=== PATIENT | male | born 1980 | race Caucasian/White ===

== ENCOUNTER 2016-08-30 08:56 | Emergency (ER) | payer MEDICAID ==
[~2016-08-30] VITALS: Wt 136.0 kg
[~2016-08-30 08:56] MED LIST: ALBU8.5H3 INH; BEN50 PO; EPIN0.3P4 INJ; PRED50TA PO
[2016-08-30 11:23] LABS: ADD SCAN DIFF NO
[2016-08-30 11:28] LABS: BASOPHIL # 0.1 10^3/ul (0.0-0.1); BASOPHILS % 0.5 % (0.0-2.0); EOSINOPHILS # 0.3 10^3/ul (0.0-0.5); EOSINOPHILS % 2.6 % (0.0-7.0); HEMATOCRIT 54.1 % (42.0-52.0); HEMOGLOBIN 18.1 g/dl (14.0-18.0); LYMPHOCYTES # 2.7 10^3/ul (0.8-2.9); LYMPHOCYTES % 26.5 % (15.0-51.0); MEAN CORPUSCULAR HGB CONC 33.5 g/dl (32.0-37.0); MEAN CORPUSCULAR VOLUME 92.8 fl (82.0-101.0); MEAN PLATELET VOLUME 10.4 fl (7.4-10.4); MONOCYTE # 0.7 10^3/ul (0.3-0.9); MONOCYTES % 7.1 % (0.0-11.0); NEUTROPHIL # 6.3 10^3/ul (1.6-7.5); NEUTROPHILS % 62.5 % (39.0-77.0); PLATELET COUNT 259 10^3/UL (140-415); RED BLOOD COUNT 5.83 10^6/ul (4.70-6.10); RED CELL DISTRIBUTION WIDTH 12.8 % (11.5-14.5); WHITE BLOOD COUNT 10.1 10^3/ul (4.8-10.8)
[2016-08-30 11:42] LABS: ALBUMIN 4.6 g/dl (3.3-4.9); ALBUMIN/GLOBULIN RATIO 1.31; BILIRUBIN,INDIRECT 0.4 mg/dl (0-1.1); BILIRUBIN,TOTAL 0.4 mg/dl (0.2-1.3); CALCIUM 9.9 mg/dl (8.4-10.2); CREATININE 0.8 mg/dl (0.61-1.24); POTASSIUM 4.4 mmol/L (3.5-5.1); TOTAL PROTEIN 8.1 g/dl (6.1-8.1)
[2016-08-30 12:11] LABS: PT RATIO 1.1
[2016-08-30] MEDS ORDERED: PHEN1SUP80 PR (12:17)
--- NOTE | 2016-08-30 12:24 | ERD ---
ER Documentation Chief Complaint Date/Time DATE: 08/30/16 TIME: 12:20 Chief Complaint INTERMITTENT BLOOD IN STOOLS. ONSET YSETERDAY, NO ACTIVE BLEEDING NOW HPI 36-year-old male complaining of blood in the stool upon bowel movement yesterday and today. He reports seeing large piece of clot when wiping. Patient stated that he had a similar episode about 1 month ago. He was seen at all of you at that time. Denies any hemorrhoids. Denies rectal pain or abdominal pain. Patient states that he is "alcoholic", drinking 12-24 beers per day, and expressed desire to quit. ROS All systems reviewed and are negative except as per history of present illness. Medications Home Meds Active Scripts Phenylephrine HCl/[place] Butter* (Preparation H* Suppository) 1 Each Supp.rect, 1 EACH IA BID Y for HEMORRHOID/EPISIOTMY PAIN, #10 SUPP.RECT Prov:HATTIE BURNETTE NP 08/30/16 Albuterol Sulfate* (Proair HFA*) 8.5 Gm Hfa.aer.ad, 2 PUFF INH Q4H Y for WHEEZING AND SOB, #1 INHALER Prov:DANTE GOODMAN NP 09/28/15 Prednisone* (Prednisone*) 50 Mg Tablet, 50 MG PO DAILY, #5 TAB Prov:DANTE GOODMAN NP 09/28/15 Diphenhydramine Hcl* (Benadryl*) 50 Mg Cap, 50 MG PO Q6H Y for ITCHING/RASH, # 30 CAP Prov:DANTE GOODMAN NP 09/28/15 Epinephrine (Epipen 2-Sarabjit) 0.3 Mg/0.3 Ml Pen.injctr, 1 EA INJ ONCE Y for ALLERGIC REACTION, #1 EA Prov:DANTE GOODMAN NP 09/28/15 Reported Medications [none] Unknown Strength No Conflict Check 09/28/15 Allergies Allergies: Coded Allergies: No Known Allergy (Unverified , 08/30/16) PMhx/Soc History of Surgery: No Anesthesia Reaction: No Hx Neurological Disorder: No Hx Respiratory Disorders: Yes (Asthma) Hx Cardiac Disorders: No Hx Psychiatric Problems: No Hx Miscellaneous Medical Probl: No Hx Alcohol Use: Yes Hx Substance Use: Yes (THC) Hx Tobacco Use: Yes Smoking Status: Current every day smoker Physical Exam Vitals Vital Signs Date Time Temp Pulse Resp B/P Pulse Ox O2 Delivery O2 Flow Rate FiO2 08/30/16 09:03 97.5 68 21 155/94 94 Physical Exam General: Well-developed, well-nourished, conscious and coherent, in no distress Skin: Warm and dry without rash, good texture and turgor Head: Normocephalic without evidence of trauma Eyes: Sclera and conjunctivae normal; pupils equal, round, and reactive to light; extraocular movements are intact Neck: Supple without meningismus or adenopathy. Carotids are equal. Trachea midline. No bruits or JVD Chest: Normal AP diameter. Good expansion without retractions. Nontender. Lungs are clear to auscultate bilaterally with good tidal volume Heart: Regular rate and rhythm. No murmur, rub, or gallops heard Abdomen: Soft and nontender without masses, guarding, or rebound. Bowel sounds are active. No hepatosplenomegaly Rectal: Normal tone. Rectal wall tenderness noted, no mass. Stool is brown and heme-negative Back: Without spinal or CVA tenderness Pelvis: Nontender to palpation and stable to compression Extremities: Full range of motion. Good strength bilaterally. No clubbing, cyanosis, or edema. Peripheral pulses are intact. Sensation intact Neuro: Alert and oriented 4, GCS 15. Cranial nerves II-XII intact. Motor and sensory exams nonfocal. Moves all extremities. Speech clear. Gait normal Result Diagram: 08/30/16 1117 08/30/16 1117 Results 24 hrs Laboratory Tests Test 08/30/16 10:20 08/30/16 11:17 Stool Occult Blood NEGATIVE White Blood Count 10.110^3/ul Red Blood Count 5.8310^6/ul Hemoglobin 18.1g/dl Hematocrit 54.1% Mean Corpuscular Volume 92.8fl Mean Corpuscular Hemoglobin 31.0pg Mean Corpuscular Hemoglobin Concent 33.5g/dl Red Cell Distribution Width 12.8% Platelet Count 04109^3/UL Mean Platelet Volume 10.4fl Neutrophils % 62.5% Lymphocytes % 26.5% Monocytes % 7.1% Eosinophils % 2.6% Basophils % 0.5% Nucleated Red Blood Cells % 0.0/100WBC Neutrophils # 6.310^3/ul Lymphocytes # 2.710^3/ul Monocytes # 0.710^3/ul Eosinophils # 0.310^3/ul Basophils # 0.110^3/ul Nucleated Red Blood Cells # 0.010^3/ul Prothrombin Time 13.5Sec Prothrombin Time Ratio 1.1 INR International Normalized Ratio 1.03 Activated Partial Thromboplast Time 28.9Sec Sodium Level 138mmol/L Potassium Level 4.4mmol/L Chloride Level 103mmol/L Carbon Dioxide Level 26mmol/L Anion Gap 13 Blood Urea Nitrogen 11mg/dl Creatinine 0.80mg/dl Glucose Level 96mg/dl Calcium Level 9.9mg/dl Total Bilirubin 0.4mg/dl Direct Bilirubin 0.00mg/dl Indirect Bilirubin 0.4mg/dl Aspartate Amino Transf (AST/SGOT) 34IU/L Alanine Aminotransferase (ALT/SGPT) 43IU/L Alkaline Phosphatase 91IU/L Total Protein 8.1g/dl Albumin 4.6g/dl Globulin 3.50g/dl Albumin/Globulin Ratio 1.31 Procedures/MDM Well-appearing 36-year-old male with history of alcohol abuse presented ED with blood in the stool. CBC, CMP, and PT/PTT are unremarkable. Stool occult blood was negative. Rectal exam revealed tender rectal wall internally, likely from internal hemorrhoids. I suspect the blood clot is also from the internal hemorrhoids. However, I informed patient to follow-up with a primary care provider for GI referral. I do recommend the patient had colonoscopy to rule out colorectal cancer. Patient expresses desire to quit alcohol. I cautioned him against quitting cold turkey. I recommend patient seek help from Alcoholics Anonymous, as well as seeking counseling from PCP. To the time for alcohol cessation counselin minutes. Patient appears well, stable for discharge and outpatient management. Medical decision making shared with patient and family. Education provided to patient and family. Patient and family expressed understanding of the plan. Medications on discharge: Preparation H suppository. Follow-up: Primary care provider in 2-3 days or return to ED if worse. Departure Diagnosis: Primary Impression: Hemorrhoid Hemorrhoid type: unspecified Qualified Code: K64.9 - Hemorrhoids, unspecified hemorrhoid type Additional Impression: Alcohol abuse Condition: Stable Patient Instructions: Alcoholism: Getting Help, Hemorrhoids Referrals: [facility] YOU HAVE RECEIVED A MEDICAL SCREENING EXAM AND THE RESULTS INDICATE THAT YOU DO NOT HAVE A CONDITION THAT REQUIRES URGENT TREATMENT IN THE EMERGENCY DEPARTMENT. FURTHER EVALUATION AND TREATMENT OF YOUR CONDITION CAN WAIT UNTIL YOU ARE SEEN IN YOUR DOCTORS OFFICE WITHIN THE NEXT 1-2 DAYS. IT IS YOUR RESPONSIBILITY TO MAKE AN APPOINTMENT FOR FOLOW-UP CARE. IF YOU HAVE A PRIMARY DOCTOR --you should call your primary doctor and schedule an appointment IF YOU DO NOT HAVE A PRIMARY DOCTOR YOU CAN CALL OUR PHYSICIAN REFERRAL HOTLINE AT IF YOU CAN NOT AFFORD TO SEE A PHYSICIAN YOU CAN CHOSE FROM THE FOLLOWING [facility] [address] [facility]. [facility] [address] [facility]. [facility] [address] [facility] [address] [facility]. [facility] [address] [facility]. [facility]. [address] Additional Instructions: Call your primary care doctor TOMORROW for an appointment during the next 2-3 days.See the doctor sooner or return here if your condition worsens before your appointment time. HATTIE BURNETTE NP August 30, 2016 12:24
[2016-08-30 12:46] LABS: INR 1.03; PROTIME 13.5 Sec (12.2-14.2)
[2016-08-30 12:47] LABS: PARTIAL THROMBOPLASTIN TIME 28.9 Sec (25.0-35.0)
== END 2016-08-30 13:15 | disposition home or self-care (01) ==
LOC: FTE 08:56
DX: K64.9 Unspecified hemorrhoids (principal); F10.10 Alcohol abuse, uncomplicated; J45.909 Unspecified asthma, uncomplicated; F17.210 Nicotine dependence, cigarettes, uncomplicated
CPT/HCPCS: 80053; 82270; 85025; 85610; 85730; Z7502; 99284

== ENCOUNTER 2017-07-10 14:27 | Emergency (ER) | END 2017-07-10 19:00 | disposition home or self-care (01) ==